=== PATIENT | female | born 1955 | race Caucasian/White ===

== ENCOUNTER 2017-08-19 20:50 | Emergency (ER) | payer BC ==
[~2017-08-19] VITALS: Ht 167.6 cm; Wt 76.7 kg
[2017-08-19 21:04] VITALS: Ht 167.6 cm; Wt 76.7 kg
[2017-08-19 22:08] LABS: BASOPHIL % 0.3 % (0-2); PLATELET COUNT 222 x10^3mcL (130-400); RED CELL DISTRIBUTION WIDTH 13.3 % (11.5-14.5)
[2017-08-19 22:14] LABS: CALCIUM 9.9 mg/dL (8.5-10.1); CARBON DIOXIDE 25.5 mmol/L (21-32); CHLORIDE SERUM 104 mmol/L (98-107); CREATININE SERUM 0.9 mg/dL (0.6-1.0); GFR1 > 60 mL/min; GLUCOSE SERUM 122 mg/dL (74-106); POTASSIUM SERUM 3.5 mmol/L (3.5-5.1); SODIUM SERUM 139 mmol/L (136-145)
[2017-08-19 22:23] LABS: ALBUMIN 3.5 g/dL (3.4-5.0); ALKALINE PHOSPHATASE 87 U/L (46-116); ALT/SGPT 30 U/L (14-59); AST/SGOT 19 U/L (15-37); BILIRUBIN TOTAL 0.26 mg/dL (0.20-1.00); TOTAL PROTEIN, SERUM 7.7 g/dL (6.4-8.2)
[2017-08-19 22:33] LABS: microscopic required? NO
[2017-08-19 22:49] LABS: UA SPECIFIC GRAVITY <=1.005 (1.005-1.035); urine erythrocyte NEGATIVE (NEGATIVE)
[2017-08-19 23:05] LABS: AMPHETAMINE QUAL UR NONE DETECTED (NEG <=1000)
[2017-08-20 00:09] VITALS: BP 148/85
== END 2017-08-20 00:09 | disposition home or self-care (01) ==
LOC: ED 20:50
PROVIDERS: Emergency Medicine
DX: R51 Headache (principal); F32.9 Major depressive disorder, single episode, unspecified; F43.10 Post-traumatic stress disorder, unspecified; G89.4 Chronic pain syndrome; F11.20 Opioid dependence, uncomplicated; F12.90 Cannabis use, unspecified, uncomplicated; F41.9 Anxiety disorder, unspecified; Z88.5 Allergy status to narcotic agent; Z88.8 Allergy status to other drugs, medicaments and biological substances; Z87.81 Personal history of (healed) traumatic fracture
CPT/HCPCS: 36415; G0480